=== PATIENT | female | born 1995 | race Caucasian/White ===

== ENCOUNTER 2024-09-04 08:57 | Emergency (ER) | payer MEDICAID ==
[~2024-09-04] VITALS: Ht 167.6 cm; Wt 58.0 kg
[2024-09-04 08:59] VITALS: PULSE 100; RESP 14; O2SAT 100
[2024-09-04 09:04] VITALS: BP 157/76; TEMP 36.9; O2SAT 100
[2024-09-04 09:20] LABS: CLARITY URINE CLOUDY (CLEAR); COLOR URINE DARK YELLOW (YELLOW); GLUCOSE URINE NEGATIVE (NEGATIVE); KETONES URINE 4+ (NEGATIVE); LEUKOCYTE ESTERASE URINE 1+ (NEGATIVE); NITRITE URINE NEGATIVE (NEGATIVE); OCCULT BLOOD URINE NEGATIVE (NEGATIVE); PROTEIN URINE 1+ (NEGATIVE); SPECIFIC GRAVITY URINE 1.028 (1.005-1.030)
[2024-09-04 09:23] LABS: BASOPHILS % 0.3 % (0.0-2.0); EOSINOPHILS % 0.4 % (0.0-5.0); HEMATOCRIT. 39.9 % (36.0-48.0); HEMOGLOBIN. 13.5 g/dL (12.0-16.0); LYMPHOCYTES % 19.6 % (20.0-50.0); MEAN CORPUSCULAR HEMOGLOBIN 30.9 pg (28.0-32.0); MEAN CORPUSCULAR HGB CONC 33.8 g/dL (31.0-37.0); MEAN CORPUSCULAR VOLUME 91.5 fL (81.0-99.0); MEAN PLATELET VOLUME 7.2 fl (7.4-10.4); MONOCYTES % 7.9 % (2.0-8.0); NEUTROPHILS % 71.8 % (40.0-76.0); PLATELET 306 x1000/uL (130-400); RED BLOOD CELL COUNT 4.36 mill/uL (4.2-5.4); RED CELL DISTRIBUTION WIDTH 13.4 % (11.6-14.6); WHITE BLOOD COUNT 7.7 x1000/uL (4.5-11.0)
[2024-09-04 09:28] LABS: CHLORIDE 103 mEq/L (98-107); SODIUM 141 mEq/L (136-145)
[2024-09-04 09:29] LABS: CALCIUM 9.3 mg/dL (8.7-10.4); CARBON DIOXIDE 28 mEq/L (21-32)
[2024-09-04 09:34] LABS: CREATININE 0.8 mg/dL (0.6-1.0); GLUCOSE 95 mg/dL (70-105); UREA NITROGEN BLOOD 8 mg/dL (9-23)
[2024-09-04 09:46] LABS: BACTERIA URINE 2+; RBC URINE 0-2 /hpf (0-2); SQUAMOUS EPITHELIAL CELL URINE 3+ /lpf (RARE/1+); YEAST URINE NONE SEEN
[2024-09-04] MEDS: MAGNESIUM/ALUMINUM HYDROXIDE/SIMETHICONE 30ML UDC PO ONE (10:20)
[2024-09-04] MEDS: ONDANSETRON 4MG ODT PO ONE (10:21)
[2024-09-04] MEDS ORDERED: ONDA-239 PO (11:01)
[2024-09-04] MEDS ORDERED: MAG-55 MT (11:01)
[2024-09-04] MEDS ORDERED: PANT40SU MT (11:01)
== END 2024-09-04 12:40 | disposition home or self-care (01) ==
LOC: ER 08:57
DX: R10.12 Left upper quadrant pain (principal); Z79.899 Other long term (current) drug therapy
CPT/HCPCS: 99283; 80048; 81003; 81025; 85025; 36415; Q0162